=== PATIENT | male | born 1985 | race Caucasian/White ===

== ENCOUNTER 2023-12-31 12:44 | Inpatient (IN) | payer OTHER ==
[2023-12-31 14:27] VITALS: BMI 25.0
[2023-12-31] MEDS ORDERED: BENZONATATE 200 MG CAPSULE PO PRN (17:18)
[2023-12-31] MEDS ORDERED: DICYCLOMINE HCL 10 MG CAPSULE PO PRN (17:18)
[2023-12-31] MEDS ORDERED: hydrOXYzine PAMOATE 25 MG CAPSULE (FP) PO PRN (17:18)
[2023-12-31] MEDS ORDERED: MAG HYDROX/AL HYDROX/SIMETH 30 ML UNIT-DOSE CUP PO PRN (17:18)
[2023-12-31] MEDS ORDERED: BISMUTH SUBSALICYLATE 524 MG/30 ML PO PRN (17:18)
[2023-12-31] MEDS ORDERED: NALOXONE HCL (KLOXXADO) 8 MG SPRAY NS PRN (17:18)
[2023-12-31] MEDS ORDERED: IBUPROFEN 400 MG TABLET (FP) PO PRN (17:18)
[2023-12-31] MEDS ORDERED: LOPERAMIDE HCL 2 MG CAPSULE PO PRN (17:18)
[2023-12-31] MEDS ORDERED: MAGNESIUM HYDROX 2400MG/30ML ORAL SUSPENSION 30 ML CUP PO PRN (17:18)
[2023-12-31] MEDS ORDERED: IBUPROFEN 600 MG TABLET (FP) PO PRN (17:18)
[2023-12-31] MEDS ORDERED: BENZOCAINE/MENTHOL (CHLORASEPTIC ) LOZENGE MM PRN (17:18)
[2023-12-31] MEDS ORDERED: guaiFENesin 600 MG TABLET.ER (FP) PO PRN (17:18)
[2023-12-31] MEDS ORDERED: ACETAMINOPHEN 325 MG TABLET (FP) PO PRN (17:18)
[2023-12-31] MEDS ORDERED: ONDANSETRON *ODT* 4 MG TABLET SL PRN (17:18)
[2023-12-31] MEDS ORDERED: POLYETHYLENE GLYCOL (HEALTHYLAX) 3350 17 GM PACKET PO PRN (17:18)
[2023-12-31] MEDS ORDERED: NALOXONE HCL 0.4 MG/ML VIAL IM PRN (17:18)
[2023-12-31] MEDS ORDERED: diazePAM 5 MG TABLET ONE (17:45)
[2023-12-31] MEDS: diazePAM 5 MG TABLET PO PRN (17:47)
[2023-12-31 20:15] LABS: URINE APPEARANCE CLEAR; URINE BILIRUBIN NEGATIVE (NEGATIVE); URINE COLOR YELLOW; URINE GLUCOSE (UA) NEGATIVE (NEGATIVE); URINE KETONE NEGATIVE (NEGATIVE); URINE LEUK ESTERASE NEGATIVE (NEGATIVE); URINE NITRITE NEGATIVE (NEGATIVE); URINE PROTEIN TRACE (NEGATIVE); URINE UROBILINOGEN 0.2 mg/dL (0.2-1.0)
[2023-12-31] MEDS: THIAMINE 100 MG TABLET PO SCH (22:16)
[2023-12-31] MEDS: diazePAM 5 MG TABLET PO SCH (22:17)
[2023-12-31] MEDS: MELATONIN 5 MG TABLETS PO SCH (22:20)
[2023-12-31] MEDS: METHOCARBAMOL 500 MG TABLET PO PRN (22:20)
[2024-01-01 09:23] LABS: HEMATOCRIT 30.1 % (35.4-49); MCH 25.4 pg (25.7-33.7); MEAN CELL VOLUME 76.9 fl (80-96); PLATELET COUNT 149 10^3/uL (134-434); RBC 3.92 M/mm3 (4.00-5.60); WHITE BLOOD COUNT 3.3 K/mm3 (4.0-10.0)
[2024-01-01 09:47] LABS: CHLORIDE 104 mmol/L (98-107); POTASSIUM 3.8 mmol/L (3.5-5.1); SODIUM 137 mmol/L (136-145)
[2024-01-01 09:50] LABS: ALBUMIN 3.2 g/dl (3.4-5.0); ANION GAP 1 mmol/L (4-13); CALCIUM 8.7 mg/dL (8.5-10.1); CO2 31 mmol/L (21-32)
[2024-01-01 09:51] LABS: GLUCOSE,RANDOM 94 mg/dL (74-106)
[2024-01-01 09:52] LABS: SGPT/ALT 20 U/L (13-61)
[2024-01-01 09:53] LABS: CREATININE 0.6 mg/dL (0.55-1.3)
[2024-01-01 09:54] LABS: BILIRUBIN,TOTAL 1.2 mg/dL (0.2-1); SGOT/AST 19 U/L (15-37)
[2024-01-01 09:55] LABS: ALK PHOS 107 U/L (45-117)
[2024-01-01] MEDS: PRENATAL VITAMINS W/ FOLIC ACID TABLET (FP) PO SCH (10:00)
[2024-01-01] MEDS: FOLIC ACID 1 MG TABLET (FP) PO SCH (10:00)
[2024-01-01] MEDS: EMTRICITAB/RILPIVIRI/TENOF ALA (ODEFSEY) TABLET PO SCH (10:34)
[2024-01-01] MEDS: diazePAM 5 MG TABLET PO SCH (13:46)
[2024-01-02] MEDS ORDERED: diazePAM 5 MG TABLET PO SCH (06:00)
[2024-01-02] MEDS: diazePAM 5 MG TABLET PO SCH (06:16)
[2024-01-02 09:27] VITALS: BP 109/65; PULSE 59; RESP 18; TEMP 97.3
[2024-01-03] MEDS ORDERED: diazePAM 5 MG TABLET PO SCH (06:00)
[2024-01-03] MEDS ORDERED: diazePAM 5 MG TABLET PO ONE (06:00)
[2024-01-04] MEDS ORDERED: diazePAM 5 MG TABLET PO ONE (06:00)
== END 2024-01-02 09:39 | disposition home or self-care (01) | DRG 775 ==
LOC: YASAS 12:44 → Y6N 17:54
PROVIDERS: ADMIT Allergy & Immunology; ATTEND Surgery
PROC: HZ2ZZZZ Detoxification Services for Substance Abuse Treatment (ICD-10-PCS; principal; 2023-12-31)
DX: F10.230 Alcohol dependence with withdrawal, uncomplicated (principal); F17.210 Nicotine dependence, cigarettes, uncomplicated; F41.9 Anxiety disorder, unspecified; Z21 Asymptomatic human immunodeficiency virus [HIV] infection status; Z79.899 Other long term (current) drug therapy
CPT/HCPCS: 36415; 71046-TC-FY; 80053; 80305; 80307; 81003; 85027; 86593; 86780; 93005; 93010

== ENCOUNTER 2025-03-20 14:46 | Inpatient (IN) | payer OTHER ==
[2025-03-20] MEDS ORDERED: BENZOCAINE/MENTHOL (CHLORASEPTIC ) LOZENGE MM PRN (15:42)
[2025-03-20] MEDS ORDERED: MAG HYDROX/AL HYDROX/SIMETH 30 ML UNIT-DOSE CUP PO PRN (15:42)
[2025-03-20] MEDS ORDERED: NALOXONE HCL 0.4 MG/ML VIAL IVPUSH PRN (15:42)
[2025-03-20] MEDS ORDERED: hydrOXYzine PAMOATE 25 MG CAPSULE (FP) PO PRN (15:42)
[2025-03-20] MEDS ORDERED: IBUPROFEN 600 MG TABLET (FP) PO PRN (15:42)
[2025-03-20] MEDS ORDERED: LOPERAMIDE HCL 2 MG CAPSULE PO PRN (15:42)
[2025-03-20] MEDS ORDERED: BENZONATATE 200 MG CAPSULE PO PRN (15:42)
[2025-03-20] MEDS ORDERED: NALOXONE (NARCAN) HCL 4 MG/0.1 ML SPRAY NS PRN (15:42)
[2025-03-20] MEDS ORDERED: POLYETHYLENE GLYCOL (HEALTHYLAX) 3350 17 GM PACKET PO PRN (15:42)
[2025-03-20] MEDS ORDERED: MAGNESIUM HYDROX 2400MG/30ML ORAL SUSPENSION 30 ML CUP PO PRN (15:42)
[2025-03-20] MEDS ORDERED: ACETAMINOPHEN 325 MG TABLET (FP) PO PRN (15:42)
[2025-03-20] MEDS ORDERED: IBUPROFEN 400 MG TABLET (FP) PO PRN (15:42)
[2025-03-20] MEDS ORDERED: guaiFENesin 600 MG TABLET.ER (FP) PO PRN (15:42)
[2025-03-20] MEDS: THIAMINE 100 MG TABLET PO SCH (21:38)
[2025-03-20] MEDS: MELATONIN 5 MG TABLETS PO SCH (21:38)
[2025-03-21] MEDS: EMTRICITAB/RILPIVIRI/TENOF ALA (ODEFSEY) TABLET PO SCH (08:32)
[2025-03-21] MEDS: PRENATAL VITAMINS W/ FOLIC ACID TABLET (FP) PO SCH (09:06)
[2025-03-21] MEDS: hydrOXYzine PAMOATE 25 MG CAPSULE (FP) PO PRN (21:19)
[2025-03-21] MEDS: METHOCARBAMOL 500 MG TABLET PO PRN (21:19)
[2025-03-22] MEDS: ESCITALOPRAM OXALATE 10 MG TABLET PO SCH (09:42)
[2025-03-24] MEDS: ONDANSETRON *ODT* 4 MG TABLET SL PRN (03:02)
[2025-03-28] MEDS: EMTRICITAB/RILPIVIRI/TENOF ALA (ODEFSEY) TABLET PO SCH (06:45)
[2025-04-02 06:42] VITALS: RESP 16
[2025-04-04] MEDS ORDERED: OXYMETAZOLINE 0.05% NASAL SOLUTION 15 ML BOTTLE NS PRN (09:47)
[2025-04-04] MEDS: P-EPHED 60MG/TRIPROLIDI 2.5MG TABLET PO PRN (10:05)
[2025-04-04] MEDS: MELATONIN 5 MG TABLETS PO SCH (21:19)
[2025-04-07 06:54] VITALS: BP 109/64; PULSE 61; TEMP 97.2
== END 2025-04-07 10:20 | disposition home or self-care (01) | DRG 772 ==
LOC: YASAS 14:46 → Y3NR 14:47 → Y3W 03-21 09:14 → Y5N 03-21 11:55
PROVIDERS: ADMIT Psychiatry & Neurology Pain Medicine; ATTEND Psychiatry & Neurology Pain Medicine
PROC: HZ42ZZZ Group Counseling for Substance Abuse Treatment, Cognitive-Behavioral (ICD-10-PCS; principal; 2025-03-21)
DX: F10.20 Alcohol dependence, uncomplicated (principal); Z21 Asymptomatic human immunodeficiency virus [HIV] infection status; D64.9 Anemia, unspecified
CPT/HCPCS: 36415; 86803; Q0162